=== PATIENT | female | born 1955 | race Caucasian/White ===

== ENCOUNTER 2022-01-13 14:10 | Outpatient (REF) | payer OTHER, SELFPAY | END 2022-01-13 14:11 | disposition home or self-care (01) | LOC: LBN 14:10 | PROVIDERS: Visit Provider Physician Assistant Medical ==

== ENCOUNTER → 2022-01-13 14:14 | Outpatient (CLI) | payer OTHER, SELFPAY ==
--- NOTE | 2022-01-13 | DI.RAD_ITS ---
Exam(s) XR FINGER LT LITTLE EXAM: XR FINGER LT LITTLE CLINICAL HISTORY: POST OP--Z98.890. TECHNIQUE: 2D digital imaging was performed. COMPARISON: CR XR HAND LT COMPLETE from 01/13/2022 FINDINGS: 3 views there is a dorsal fixation plate across healing fracture site in the proximal of the proximal phalanx of the 5th finger. Fracture line is visible. No prominent displacement. No radiographic evidence of hardware loosening nor osteomyelitis. IMPRESSION: DATA REPOSITORY: RADIATION DOSE DELIVERED:
--- NOTE | 2022-01-13 | DI.RAD_ITS ---
Exam(s) XR HAND LT COMPLETE EXAM: XR HAND LT COMPLETE CLINICAL HISTORY: POST OP--Z98.890. TECHNIQUE: 2D digital imaging was performed. COMPARISON: No exams were available for comparison FINDINGS: 3 views There is a dorsal fixation plate across the fracture site in the proximal half of the proximal phalan x of the 5th finger. Fracture Fe line is faintly visible. Satisfactory alignment. There is no evid ence of hardware loosening and no radiographic evidence of osteomyelitis. No other fracture sites identified. IMPRESSION: DATA REPOSITORY: RADIATION DOSE DELIVERED:
== END ==
PROVIDERS: Visit Provider Physician Assistant Medical
DX: S62.611D Displaced fracture of proximal phalanx of left index finger, subsequent encounter for fracture with routine healing (principal); Z98.890 Other specified postprocedural states
CPT/HCPCS: 73130; 73140